=== PATIENT | female | born 1950 | race African-American/Black ===

== ENCOUNTER → 2020-04-01 | Outpatient (CLI) | payer MEDICARE ==
--- NOTE | 2020-04-01 12:26 | Diagnostic Imaging Report ---
EXAM: Renal Ultrasound INDICATION: Microscopic hematuria ^MICROSCOPIC HEMATURIA COMPARISON: None TECHNIQUE: Transverse and longitudinal images of the kidneys and bladder were obtained. FINDINGS: Right Kidney: Length: 8.9 x 5.3 x 3.7 cm Appearance: Normal echogenicity. Collecting system: Mild hydronephrosis Stones: None Cyst/Mass: 1.5 x 1.5 x 1.3 cm hypoechoic lesion in the mid right kidney. This could be due to a small cyst. Left Kidney: Length: 10.0 x 4.7 x 4.4 cm Appearance: Normal echogenicity. Collecting system: Mild hydronephrosis Stones: None Cyst/Mass: None Bladder: Normal. Bilateral ureteral jets are seen. IMPRESSION: Mild right and left hydronephrosis. 1.5 x 1.5 x 1.3 cm hypoechoic lesion in the mid right kidney. This could be due to a small cyst. CT scan may be of benefit for further evaluation. Signed by: Dr. Conner Ness M.D. on 04/01/2020 12:23 PM
== END ==
LOC: US 11:19
PROVIDERS: ATTEND Urology
DX: R31.21 Asymptomatic microscopic hematuria (principal)
CPT/HCPCS: 76770